=== PATIENT | female | born 1995 | race Caucasian/White ===

== ENCOUNTER 2017-08-31 14:12 | Emergency (ER) | payer SELFPAY ==
[~2017-08-31] VITALS: Ht 152.4 cm; Wt 84.1 kg
[2017-08-31 14:18] VITALS: TEMP 98.9
[2017-08-31] MEDS ORDERED: BUSPAR DIVIDOSE15 MG PO (14:57)
[2017-08-31] MEDS ORDERED: CELEXA 20MG20 MG/TAB PO (14:58)
[2017-08-31] MEDS ORDERED: WELLBUTRIN XL300 M1 PO (14:58)
[2017-08-31] MEDS ORDERED: TOFRANIL 25MG T25 MG PO (14:59)
[2017-08-31] MEDS ORDERED: KEPPRA250 MG PO (15:00)
[2017-08-31] MEDS ORDERED: FOLIC ACID 11 MG/TA1 PO (15:00)
[2017-08-31] MEDS ORDERED: TOPAMAX 100MG100 M1 PO (15:00)
[2017-08-31] MEDS ORDERED: KLONOPIN 0.5MG0.5 MG PO (15:01)
[2017-08-31] MEDS ORDERED: DITROPAN XL10 MG PO (15:01)
[2017-08-31] MEDS ORDERED: PHENERGAN 25 TA25 MG PO (15:02)
[2017-08-31] MEDS ORDERED: TOPAMAX 25MG25 M1 PO (15:02)
[2017-08-31] MEDS ORDERED: INDERAL 10MG10 MG (15:03)
[2017-08-31 15:45] LABS: BASO # 0.1 (0.0-0.2); BASO % 0.8 % (0.0-2.0); EOS # 0.3 (0.0-0.7); GRAN # 6.9 (1.4-6.5); HEMATOCRIT 39.9 % (35.0-45.0); HEMOGLOBIN 13.7 g/dl (12.0-15.0); LYMPH # 1.5 (1.2-3.4); LYMPH % 16.1 % (20.0-51.0); MEAN CELL VOLUME 90 fl (80.0-95.0); MEAN CORPUSCULAR HEMOGLOBIN 31 pg (26.0-32.0); MEAN CORPUSCULAR HGB CONC 34 g/dl (33.0-37.0); MEAN PLATELET VOLUME 10.9 fl (7.4-10.4); MONO # 0.7 (0.1-0.6); MONO % 7.7 % (1.7-9.3); PLATELET COUNT 240 K/mm3 (130-400); RED BLOOD COUNT 4.44 M/mm3 (4.10-5.30); WHITE BLOOD COUNT 9.5 K/mm3 (4.8-10.8)
[2017-08-31 15:58] LABS: ADJUSTED CALCIUM 9.3 mg/dL (8.4-10.2); ALANINE AMINOTRANSFERASE 24 U/L (9-52); ALBUMIN 4.3 gm/dL (3.5-5.0); ALKALINE PHOSPHATASE 91 U/L (50-136); ANION GAP 12 mmol/L (7-16); BILIRUBIN,TOTAL 0.4 mg/dL (0.0-1.0); BLOOD UREA NITROGEN 12 mg/dL (7-17); CALCIUM 9.5 mg/dL (8.4-10.2); CARBON DIOXIDE 25 mmol/L (22-30); CHLORIDE 110 mmol/L (98-107); CREATININE, serum 0.69 mg/dL (0.52-1.25); GLUCOSE 89 mg/dL (74-106); POTASSIUM 3.7 mmol/L (3.4-5.0); SODIUM 146 mmol/L (137-145); TOTAL PROTEIN 7.8 gm/dL (6.4-8.2)
[2017-08-31 16:12] LABS: ACETAMINOPHEN < 10 ug/mL (10-30); ALCOHOL(ethanol),MEDICAL < 10 mg/dL; SALICYLATE < 1.0 mg/dL
[2017-08-31 17:24] LABS: AMPHETAMINE URINE NEGATIVE; BARBITURATES URINE NEGATIVE; BENZODIAZEPINES URINE NEGATIVE; BUPRENORPHINE URINE NEGATIVE; METHADONE URINE NEGATIVE; OPIATES URINE NEGATIVE; OXYCODONE URINE NEGATIVE; PHENCYCLIDINE URINE NEGATIVE; PROPOXYPHENE URINE NEGATIVE; THC CANNABINOIDS URINE NEGATIVE; TRICYCLIC ANTIDEPRESS URINE POSITIVE
[2017-09-01 00:18] VITALS: BP 132/71; PULSE 89
== END 2017-09-01 00:18 ==
LOC: COL.ER 14:12
PROVIDERS: Physician Assistant
DX: S61.512A Laceration without foreign body of left wrist, initial encounter (principal); F32.9 Major depressive disorder, single episode, unspecified; F41.9 Anxiety disorder, unspecified; R45.851 Suicidal ideations; X78.9XXA Intentional self-harm by unspecified sharp object, initial encounter